=== PATIENT | female | born 1985 | race Caucasian/White ===

== ENCOUNTER 2016-10-04 06:00 | Inpatient (IN) ==
[2016-10-04] MEDS ORDERED: Famotidine 20 MG/2 ML VIAL IVP PRN (06:44)
[2016-10-04] MEDS ORDERED: Naloxone 0.4 MG/ML INJ IVP PRN (06:44)
[2016-10-04] MEDS ORDERED: Metoclopramide 10 MG/2 ML VIAL IVP PRN (06:44)
[2016-10-04] MEDS ORDERED: Ondansetron 4 MG/2 ML VIAL IVP PRN (06:44)
[2016-10-04] MEDS ORDERED: Ringers Solution, Lactated 1,000 ML IVC SCH (06:45)
[2016-10-04] MEDS ORDERED: *HR* Nalbuphine 20 MG/ML AMPUL IVP PRN (06:46)
[2016-10-04 06:54] LABS: Basophils # 0.1 K/mcL (0.0-0.2); Basophils % 0.8 %; Eosinophils # 0.1 K/mcL (0.0-0.6); Eosinophils % 1.4 %; Hematocrit 34.8 % (35.3-44.9); Hemoglobin 11.2 g/dL (11.5-15.4); Immature Granulocytes % 0.8 % (0-4); Lymphocytes # 1.4 K/mcL (0.6-4.6); Lymphocytes % 22.5 %; Mean Corpuscular HGB Conc 32.2 g/dL (31.6-35.5); Mean Corpuscular Hemoglobin 26.9 pg (28.0-33.3); Mean Corpuscular Volume 83.7 fL (83.0-100.0); Mean Platelet Volume 10.8 fL (9.4-12.4); Monocytes # 0.5 K/mcL (0.0-1.3); Neutrophils # 4.2 K/mcL (1.6-8.9); Platelet Count 160 K/mcL (140-400); Red Blood Count 4.16 M/mcL (3.82-4.97); Red Cell Distribution Width 15.3 % (11.5-14.5); Segmented Neutrophils % 66.5 %
[2016-10-04] MEDS ORDERED: miSOPROStol 25 MCG TABLET PO SCH (08:00)
[2016-10-04] MEDS ORDERED: miSOPROStol 100 MCG TABLET PO ONE (08:41)
[2016-10-04] MEDS ORDERED: Methylergonovine 0.2 MG/ML AMPUL IM ONE (08:41)
--- NOTE | 2016-10-04 08:46 | Anesthesia Evaluation PreOp ---
Date of Encounter: 10/04/16 Time of Encounter: 07:56 - Past History Planned Operation: vaginal del, , Induction Cardiac History: Denies any Significant Hx Pulmonary History: Denies Any Significant HX B[place]ER [place] History: Denies Any Significant HX Other Medical History: Denies Any Significant HX, Other (L5-S1 disc issue, no dependent radiculopathy, no radiculopathy for long time >yr, would not last long but pain go down to foot. verbalized concern, pt verbalized understanding. reports get adjusted at chiropractor and feels better.) Anesthesia History: No Prior Anesthetic Complications, Past Anesthesia ( previous epidural, wisdom teeth ext.) : Yes (term) Alcohol Use: none Drug use: none Medications and Allergies [id number]/Iron Fumarate/FA/Dss [ 19 Tablet] 1 tab PO DAILY 10/04/16 [ History] Allergies Cefaclor [From Ceclor] Allergy (Verified 10/04/16 07:08) Rash Anesthesia Results - Labs 10/04/16 06:35 Anesthesia Exam - HEENT Pupil (Motor): Pupils equal Mallampati: II Teeth: Normal Oral Opening: Greater than 3 - BANKER [place]ON LOC: Oriented BANKER [place] Motor: Normal RUE, Normal LUE, Normal RLE, Normal LLE, Normal Face BANKER [place]ON Sensory: Normal: RUE, LUE, RLE, LLE, Face - Cardiac Rhythm: Regular Murmur: None (S2 split) - Pulmonary Breath Sounds: bilateral Clear Respiratory Effort: Symmetrical Anesthesia Assess/Plan ASA Score: 2 Modified Don Scale for Level of Consciousness: Cooperative, oriented, and tranquil Anesthetic Plan: General, Regional (patient going to attempt to not get regional this delivery.)
--- NOTE | 2016-10-04 10:55 | OB/GYN History & Physical ---
Date of Encounter: 10/04/16 Time of Encounter: 10:52 Assessment and Plan (1) 39 weeks gestation of Current visit: Yes Status: Acute Routine labor management Patient may have nubain and/or epidural upon request for pain control Cytotec induction Consider AROM after 4cm dilation and vertex well applied Consider Pitocin as needed for adequate contraction pattern Anticipate vaginal delivery Dr Mora to deliver if available POC per consult with Dr Mora. (2) LGA (large for gestational age) fetus Current visit: Yes Status: Acute IOL for size greater than dates History of Present Illness Chief complaint: IOL HPI: Ms. Paulino is a 31 year old female patient of Dr Saini at 39 weeks that arrives to labor and delivery for scheduled IOL due to EFW greater than the 90th percentile at 36 week growth scan. She is GBS negative. Her blood type is A+. She is Rubella and Varicella immune. Her serology is insignificant. Past Med Surg Social Fam HX - Past Medical History Medical history: no medical history Psychiatric history: no psych history - Social History Smoking Status: Never smoker Smokeless Tobacco Status: No Alcohol use: none Drug use: none - Family History Mother Adopted: No Family Member Ethnicity: Non- Living Status: Still Living Hx Family Cardiac Disorders: Yes Hx Family Respiratory Disorders: Yes Hx Family Cancer: No Hx Family GI Disorders: No Hx Family Genitourinary Disorders: No Hx Family Endocrine Disorder: No Hx Family Musculoskeletal Disorders: No Hx Family Neuromuscular Disorders: No Hx Family Neurologic Disorders: No Hx Family HEENT Disorders: No Hx Family Autoimmune Disorders: No Hx Family Reproductive Disorders: No Hx Family Psychosocial Disorders: Yes Hx Family Medical Disorders: No Obstetrical History - Pregnancies : 2 Para: 1 Term: 1 : 0 Ab's: 0 Livin Medications and Allergies Hsn384/Iron Fumarate/FA/Dss [ 19 Tablet] 1 tab PO DAILY 10/04/16 [ History] Allergies [facility] [[facility]] Allergy (Verified 10/04/16 07:08) Rash Review of System OB All systems PM: reviewed and no additional remarkable complaints except as stated Exam - Constitutional Constitutional: well developed, well nourished, no acute distress, average body habitus - HEENT HEENT: Normocephaly, Mucus Membranes Moist - Neck Neck exam: full ROM - Lungs Respiratory exam: CTAB - Cardiovascular Cardiovascular exam: RRR, +S1, +S2 - Abdomen Abdomen: Present: bowel sounds normal, gravid. Absent: non tender - Extremities Extremities exam: normal capillary refill, normal inspection - Cervix Dilation: 2 (Per Office Exam) Effacement: 80 (Per Office Exam) Station: -2 - Uterus Uterus exam: Present: normal size, normal contour (FHTs 140's with moderate variability and no decels. Contractions palpate mild every 1.5 - 3 minutes. ) Results Result Diagrams: 10/04/16 06:35 Abnormal lab results Hgb 11.2 g/dL (11.5-15.4) L 10/04/16 06:35 Hct 34.8 % (35.3-44.9) L 10/04/16 06:35 MCH 26.9 pg (28.0-33.3) L 10/04/16 06:35 RDW 15.3 % (11.5-14.5) H 10/04/16 06:35 All other labs normal.
[2016-10-04] MEDS ORDERED: Ringers Solution, Lactated 1,000 ML ONE (12:00)
--- NOTE | 2016-10-04 12:00 | OB Labor Progress Note ---
Date of Encounter: 10/04/16 Time of Encounter: 11:57 Labor Progress Note - Subjective Subjective: Patient resting comfortably in bed. States contractions are tolerable. - Vital Signs Vital Signs: VSS - Cervix Cervix: 4/70/-2 - Heart Tones Heart Tones: 140's with moderate variability and 15 x 15 accels and no decels. - [place] [facility] [place] [facility]: Contractions every 1-4 minutes - Interventions Interventions: AROM for large amount of clear fluid. Fetus and patient tolerated well. - Plan Plan: Continue routine labor management Patient may have nubain and or epidural upon request; patient states she would like to attempt labor without epidural GBS negative Anticipate vaginal delivery POC per consult with Dr Mora
[2016-10-04] MEDS ORDERED: Oxytocin 20 units/ LR 1000 mL 20 UNIT/1,000 ML BAG IVC ONE ×2 (15:00→17:18)
[2016-10-04] MEDS ORDERED: Lidocaine 1% 20 ML MDV ONE (15:01)
[2016-10-04] MEDS ORDERED: Ibuprofen 600 MG TABLET PO PRN ×2 (16:16→18:11)
[2016-10-04] MEDS ORDERED: miSOPROStol 100 MCG TABLET RC STA (16:22)
--- NOTE | 2016-10-04 16:25 | OB Labor Progress Note ---
Date of Encounter: 10/04/16 Time of Encounter: 14:55 Labor Progress Note - Subjective Subjective: Patient breathing through contractions and quiet between. States "I can't do this any longer". - Vital Signs Vital Signs: VSS - Cervix Cervix: Complete/-2 - Heart Tones Heart Tones: 110-120's moderate variability with 15x15 accels occasional variables. - [place] Crawford: Contractions every 1-3 minutes - Interventions Interventions: Sit up to push - Plan Plan: Anticipate vaginal delivery. Sit up to push. Dr Curiel process control specialist for potential shoulder dystocia due to LGA per ultrasound
--- NOTE | 2016-10-04 16:28 | OB/GYN Procedure Note ---
Delivery - Delivery Date: 10/04/16 Provider: Devante Curiel (Vilma Harris to deliver placenta and repair) Delivery induction: misoprostol Delivery augmentation: rupture of membranes Delivery monitor: external FHT, external uterine Anesthesia: none Estimated Blood Loss: 250 - (s) A Infant Delivery Date: 10/04/16 Infant Delivery Time: 15:34 Presentation: vertex Position: AIDA Route of delivery: Gender: Female Viability: Viable Pounds: 9 Ounces: 2 Weight Gram: 4145 kg at 1 minute: 8 at 5 mins: 9 Shoulder Dystocia: encountered Shoulder Dystocia Maneuvers: Faustina maneuver, suprapubic pressure Shoulder dystocia time elapsed: 30 seconds Specimens collected: venous cord gases, arterial cord gases Placenta: spontaneous - Repair Episiotomy: none Laceration Description: Perineal - 1st Degree - Complications Delivery comments: Patient progressed to complete and began pushing spontaneously. Turtle sign noted when pushing, Dr Curiel notified to come into room for possible shoulder dystocia. of viable female ; no nuchal cord, no meconium stained fluid. 30 second shoulder dystocia of the left shoulder. Shoulder reduced with suprapubic pressure and McRobert's by Dr Curiel. Body followed easily afterward. vigorous. Cord clamped and cut immediately. taken to prewarmed radiant warmer and assessed by nursery staff. Apgars 8 and 9 at 1 and 5 minutes of age respectively. Cord gasses collected and sent. Spontaneous delivery of placenta with trailing membranes. Membranes sheared from disk during delivery, all pieces appear present upon inspection and placental disk appears grossly intact. Dr Curiel verified placenta inspection. Upon visual inspection, hemostatic periurethral abrasion present - will leave to heal by second intention - and a first degree that was repaired with 3-0 vicryl in the usual fashion. After completion of repair, patient's uterus is firm and at U. Steady trickle of blood noted from the vagina. 800mg of cytotec given rectally due patient's history of PPH with previous delivery. EBL 250. Upon leaving the room, patient's uterus remains firm and at U with small amount of vaginal bleeding. and mother stable and recovering in room. - Disposition Mom disposition: stable in LDR [place] disposition: stable in LDR
--- NOTE | 2016-10-04 17:07 | Event Note ---
Date of Encounter: 10/04/16 Time of Encounter: 16:45 Called into room by RN. Upon fundal checks, patient is having "large gushes" of blood noted. With fundal massage about 10cc of watery blood gushed from vagina. Straight cathed patient for 250 cc of dark yellow urine. Methergine given IM per RN with this CNM in room. Bimaunal exam reveals a firm uterus with a cervix open to 4 cm and a large palpable clot in the posterior fornix. I removed part of the clot manually. Patient states she feels fine and was willing to go to the restroom to change her body's position to see if gravity would aid the remaining portion of the clot to dislodge. Patient sits on the toilet and bears down for a few minutes without success of dislodging clot. Patient returns to bed. Fundus firm at U without large gush.
[2016-10-04] MEDS ORDERED: Measles/Mumps/Rubella Vacc 0.5 ML VIAL SQ PRN (18:11)
[2016-10-04] MEDS ORDERED: Acetaminophen 325 MG TABLET PO PRN (18:11)
[2016-10-04] MEDS ORDERED: Oxytocin 20 units/ LR 1000 mL 20 UNIT/1,000 ML BAG IVC SCH (18:11)
[2016-10-05 08:23] VITALS: BP 105/68
[2016-10-05] MEDS ORDERED: Prenatal Vit/FA 1 EACH TABLET PO SCH ×2 (09:00)
--- NOTE | 2016-10-05 10:29 | Discharge Summary ---
Date of Encounter: 10/05/16 Time of Encounter: 10:26 - Discharge Diagnosis (1) Vaginal delivery Priority: Primary Status: Acute - Discharge Medications Prescriptions: Ibuprofen [Motrin] 600 mg PO Q6HR PRN #60 tablet PRN Reason: Mild To Moderate Pain Docusate [Colace] 100 mg PO BID #60 capsule Home Medications: [id number]/Iron Fumarate/FA/Dss [ 19 Tablet] 1 tab PO DAILY 10/04/16 [ History] Acetaminophen [Tylenol] 650 mg PO Q6HR PRN #0 tablet 10/05/16 [Rx] Breast Pump [BREAST PUMP] 1 each .ROUTE AD #1 each 10/05/16 [Rx] Docusate [Colace] 100 mg PO BID #60 capsule 10/05/16 [Rx] Ibuprofen [Motrin] 600 mg PO Q6HR PRN #60 tablet 10/05/16 [Rx] Allergies/Adverse Reactions: Allergies Cefaclor [From Ceclor] Allergy (Verified 10/04/16 07:08) Rash Data Procedures and tests throughout hospitalization: Laboratory Tests 10/04/16 06:35 WBC 6.3 RBC 4.16 Hgb 11.2 L Hct 34.8 L MCV 83.7 MCH 26.9 L MCHC 32.2 RDW 15.3 H Plt Count 160 MPV 10.8 Immature Gran % 0.8 Seg Neutrophils % 66.5 Lymphocytes % 22.5 Monocytes % 8.0 Eosinophils % 1.4 Basophils % 0.8 Neutrophils # 4.2 Lymphocytes # 1.4 Monocytes # 0.5 Eosinophils # 0.1 Basophils # 0.1 Date of admission: 10/04/16 06:15 Primary care physician: Alina Green, Consults: 10/04/16 18:11 Consult to [employer] [CONS] Routine Comment: Vaginal delivery, consult needed Discharging clinician: Ilana Gibbs Anticipated date of discharge: 10/05/16 - Patient Status Disposition: Home, Self-Care Condition: Good Functional capacity at discharge: independent ambulation Overall status at discharge: patient is back to baseline - Discharge Instructions Instructions: Vaginal Delivery (DC) Follow Up With: Alina Green MD [Primary Care Provider] - Additional Instructions: Perineal Care: Always wipe front to back Change your pad frequently Use your james bottle with warm water and spray front to back Do not douche, use tampons, have sexual intercourse or put anything in your vagina for 4-6 weeks after delivery Bleeding: Vaginal bleeding can last up to 6 weeks Your menstrual period may return as early as 6 weeks after you are discharged from the hospital Parnell/Stitches Care: Vaginal Delivery Vaginal stitches will dissolve within 4-6 weeks Follow perineal care instructions Care Stitches will dissolve on their own If you have tracie, they will need to be removed in the doctors office within 5-7 days. You may shower with stitches or tracie Drip plan or soapy water over the incision to clean. Pat dry gently with a clean towel. Make sure you completely dry under the skin folds DO NOT USE powders, lotions, rubbing alcohol or hydrogen peroxide on or around your incision. This will slow your wound healing It is normal to have soreness, burning, tingling, itchiness and/or numbness as your incision heals Activity: Rest frequently Do not lift anything heavier than a gallon of milk, up to 10-15 pounds No driving for 1-2 weeks for Vaginal delivery No driving for 2-4 weeks for delivery Take stairs slowly, one at a time Gradually increase your daily activity until you are back to your normal routine Do not exercise until you have had your follow-up appointment Bathing: Take a shower daily Do not take a tub bath for the first 4 weeks Diet: Drink plenty of water and fruit juices Eat a well-balanced diet with foods high in fiber such as fruits and vegetables Depression: Your hormones have a major impact on your feelings and emotions. Hormone imbalance may cause changes in your mood, creating unfamiliar thoughts and actions. Support is available to help you understand and cope with these feelings and mood changes. If you answer yes to any of the following questions, please call your health care provider: Are you having trouble sleeping? Are you feeling isolated? Have you lost your appetite? Are you having thoughts of hurting yourself or others? WARNING SIGNS: Heavy bleeding from the vagina (blood is bright red and soaks a sanitary pad in an hour or less.) Passing a blood clot larger than your fist Discharge from the vagina that has a bad odor Temperature over 100.4 F, or if you feel cold and have chills An episiotomy site that is warm, swollen or oozing. Use a mirror if needed Urination (pee) that is painful, very red and swollen or leaking fluid An incision that is painful, very red and swollen and leaking fluid An incision that has come open Breasts that are painful or full with flu like symptoms Redness, warmth or swelling in the calf of your leg Trouble breathing, dizziness, visual disturbance or faintness *Notify your health care provider immediately or go to the nearest Emergency Room if you experience any of the above signs.* To contact the nurses station 24 hours a day, For non-urgent, routine questions, please call the office at - Diet and Activity Activity: resume usual activities as tolerated Diet: regular diet Hospital Course Reason for admission: IUP at term Delivery: Episiotomy: none Laceration: 1st degree Other procedures: none complications: none Discharge diagnosis: IUP at term delivered baby: female Hospital course: - Delivery Date: 10/04/16 Provider: Devante Curiel to deliver placenta and repair) Delivery induction: misoprostol Delivery augmentation: rupture of membranes Delivery monitor: external FHT, external uterine Anesthesia: none Estimated Blood Loss: 250 - Infant (s) A Infant Delivery Date: 10/04/16 Infant Delivery Time: 15:34 Presentation: vertex Position: AIDA Route of delivery: Gender: Female Viability: Viable Pounds: 9 Ounces: 2 Weight Gram: 4145 kg at 1 minute: 8 at 5 mins: 9 Shoulder Dystocia: encountered Shoulder Dystocia Maneuvers: Faustina maneuver, suprapubic pressure Shoulder dystocia time elapsed: 30 seconds Specimens collected: venous cord gases, arterial cord gases Placenta: spontaneous - Repair Episiotomy: none Laceration Description: Perineal - 1st Degree - Complications Delivery comments: Patient progressed to complete and began pushing spontaneously. Turtle sign noted when pushing, Dr Curiel notified to come into room for possible shoulder dystocia. of viable female infant; no nuchal cord, no meconium stained fluid. 30 second shoulder dystocia of the left shoulder. Shoulder reduced with suprapubic pressure and McRobert's by Dr Curiel. Body followed easily afterward. Infant vigorous. Cord clamped and cut immediately. Infant taken to prewarmed radiant warmer and assessed by nursery staff. Apgars 8 and 9 at 1 and 5 minutes of age respectively. Cord gasses collected and sent. Spontaneous delivery of placenta with trailing membranes. Membranes sheared from disk during delivery, all pieces appear present upon inspection and placental disk appears grossly intact. Dr Curiel verified placenta inspection. Upon visual inspection, hemostatic periurethral abrasion present - will leave to heal by second intention - and a first degree that was repaired with 3-0 vicryl in the usual fashion. After completion of repair, patient's uterus is firm and at U. Steady trickle of blood noted from the vagina. 800mg of cytotec given rectally due patient's history of PPH with previous delivery. EBL 250. Upon leaving the room, patient's uterus remains firm and at U with small amount of vaginal bleeding. and mother stable and recovering in room. - Disposition Mom disposition: stable in PP and appropriate for discharge Time Attestation: Total time spent providing and/or coordinating discharge services: Time Spent: Less than 30 minutes Exam - Constitutional Vitals: Temp Pulse Resp BP Pulse Ox 97.9 F 87 16 105/68 99 10/05/16 07:30 10/05/16 07:30 10/05/16 07:30 10/05/16 07:30 10/05/16 03:09 General appearance IM: A&O X 3 - Respiratory Respiratory exam: Present: CTAB - Cardiovascular Cardiovascular exam IM: Present: RRR - GI/Abdominal GI/Abdominal exam IM: normal bowel sounds, soft - Uterine Tone: Firm Uterus Position: At Umbilicus, Midline - Extremities Exam Extremities exam IM: Present: normal capillary refill, normal inspection - Neurological Exam Neurological exam: normal gait, oriented X3 - Psychiatric Additional comments: Reports good mood
== END 2016-10-05 14:03 | disposition home or self-care (01) | DRG 560 ==
LOC: 1NENULAB 06:15 → 1NENUOBS 18:14
PROVIDERS: ADMIT Obstetrics & Gynecology; ATTEND Obstetrics & Gynecology

== ENCOUNTER 2018-11-21 08:00 | Inpatient (IN) ==
[2018-11-21] MEDS ORDERED: Metoclopramide 10 MG/2 ML VIAL IVP PRN (08:41)
[2018-11-21] MEDS ORDERED: Famotidine 20 MG/2 ML VIAL IVP PRN (08:41)
[2018-11-21] MEDS ORDERED: Ondansetron 4 MG/2 ML VIAL IVP PRN (08:41)
[2018-11-21] MEDS ORDERED: *HR* Nalbuphine 10 MG/ML AMPUL IVP PRN (08:41)
[2018-11-21] MEDS ORDERED: Naloxone 0.4 MG/ML INJ IVP PRN (08:41)
[2018-11-21] MEDS ORDERED: Ringers Solution, Lactated 1,000 ML IVC SCH (08:45)
[2018-11-21] MEDS ORDERED: miSOPROStol 25 MCG TABLET PO SCH (09:15)
[2018-11-21 09:19] LABS: Basophils # 0.1 K/mcL (0.0-0.2); Basophils % 0.6 %; Eosinophils % 0.4 %; Hematocrit 36.3 % (35.3-44.9); Hemoglobin 11.7 g/dL (11.5-15.4); Immature Granulocytes % 0.9 % (0-4); Lymphocytes # 1.5 K/mcL (0.6-4.6); Lymphocytes % 19.5 %; Mean Corpuscular HGB Conc 32.2 g/dL (31.6-35.5); Mean Corpuscular Volume 90.1 fL (83.0-100.0); Mean Platelet Volume 11.5 fL (9.4-12.4); Monocytes # 0.5 K/mcL (0.0-1.3); Monocytes % 6.6 %; Neutrophils # 5.6 K/mcL (1.6-8.9); Platelet Count 187 K/mcL (140-400); Red Blood Count 4.03 M/mcL (3.82-4.97); White Blood Count 7.8 K/mcL (4.3-11.1)
[2018-11-21] MEDS ORDERED: Oxytocin 20 units/ LR 1000 mL 20 UNIT/1,000 ML BAG IVC ONE (13:21)
[2018-11-21 13:23] LABS: Amphetamine Screen,Urine Negative ng/mL (Cutoff=1000); Barbiturate Screen,Urine Negative ng/mL (Cutoff=200); Benzodiazepines Screen,Urine Negative ng/mL (Cutoff=200); Cannabinoid Screen,Urine Negative ng/mL (Cutoff = 50); Cocaine Screen,Urine Negative ng/mL (Cutoff= 300); Opiate Screen,Urine Negative ng/mL (Cutoff=300); Phencyclidine Screen,Urine Negative ng/mL (Cutoff=25)
[2018-11-21] MEDS: Oxytocin 20 units/ LR 1000 mL 20 UNIT/1,000 ML BAG IVC SCH ×2 (13:30→16:14)
--- NOTE | 2018-11-21 13:42 | OB/GYN Procedure Note ---
Delivery - Delivery Date: 11/21/18 Provider: Sarath Mora Delivery induction: AROM, misoprostol Delivery monitor: external FHT, external uterine Anesthesia: none Quantitated Blood Loss: 100 - Infant (s) Infant A Delivery Date: 11/21/18 Infant Delivery Time: :19 Presentation: vertex Position: AIDA Route of delivery: Gender: Male Viability: Viable Pounds: 8 Ounces: 5 Shoulder Dystocia: not encountered Placenta: spontaneous Cord: true knot - Repair Episiotomy: none Laceration Description: None - Complications Delivery complications: none - Disposition Mom disposition: stable in LDR disposition: stable in LDR - Comments Comments: Since status post normal spontaneous vaginal delivery of liveborn male from left occiput anterior presentation. Delivery was over an intact perineum and there was no shoulder dystocia. With spontaneous delivery of a normal placenta with three-vessel cord. There was a true knot in the cord. No complications estimated blood loss (cc mother and infant recovered in labor and delivery room
[2018-11-21] MEDS ORDERED: Measles/Mumps/Rubella Vacc 0.5 ML VIAL SQ PRN (13:45)
[2018-11-21] MEDS ORDERED: Rho Immune Globulin 1,500 UNIT SYRINGE IM PRN (13:45)
[2018-11-21] MEDS ORDERED: Acetaminophen 325 MG TABLET PO PRN (13:45)
--- NOTE | 2018-11-21 13:46 | OB/GYN History & Physical ---
Date of Encounter: 11/21/18 Time of Encounter: 13:43 Assessment and Plan (1) 39 weeks gestation of Current visit: No Status: Acute Pt at 39 weeks gestation presents for induction of labor. (2) LGA (large for gestational age) fetus Current visit: No Status: Acute History of Present Illness Chief complaint: Here for induction HPI: Ms. Paulino is a 33 year old female female at 39 weeks EGA presents for induction. On arrival she reports +GFM, no vb or lof. Past Med Surg Social Fam HX - Past Medical History Source: patient, old records reviewed Medical history: no medical history Psychiatric history: no psych history - Past Surgical History Additional surgical history: wisdom teeth - Social History Smoking Status: Never smoker Smokeless Tobacco Status: No Alcohol use: none Drug use: none - Family History Mother Adopted: No Family Member Ethnicity: Non- Living Status: Still Living Hx Family Cardiac Disorders: Yes Hx Family Respiratory Disorders: Yes Hx Family Cancer: No Hx Family GI Disorders: No Hx Family Endocrine Disorder: No Hx Family Neuromuscular Disorders: No Hx Family Neurologic Disorders: No Hx Family HEENT Disorders: No Hx Family Autoimmune Disorders: No Obstetrical History - Pregnancies : 3 Para: 2 Medications and Allergies Pyd460/Iron Fumarate/FA/Dss [ 19 Tablet] 1 tab PO DAILY 10/04/16 [History] Allergy/AdvReac Type Severity Reaction Status Date / Time Cefaclor [From [facility]] Allergy Rash Verified 10/04/16 07:08 Exam - Constitutional Constitutional: well developed - HEENT HEENT: EOMI, PERRL - Neck Neck exam: full ROM - Lungs Respiratory exam: CTAB - Cardiovascular Cardiovascular exam: RRR - Extremities Extremities exam: full ROM Deep Tendon Reflex Grade: 2+ Normal - Cervix Dilation: 3 Effacement: 80 Station: -2 - Uterus Uterus exam: Present: normal size Results Result Diagrams: 11/21/18 08:35 All other labs normal. - VTE Reasons for not Prescribing Prophylaxis: Treatment not Indicated - Low risk for VTE
[2018-11-22 07:55] VITALS: BP 114/74
[2018-11-22] MEDS ORDERED: Prenatal Vit/FA 1 EACH TABLET PO SCH (09:00)
--- NOTE | 2018-11-22 09:39 | Discharge Summary ---
Date of Encounter: 11/22/18 Time of Encounter: 10:05 - Discharge Diagnosis (1) Mother currently breast-feeding Priority: Secondary Status: Acute Comments: Breastfeed baby on demand, at least every 3 hours. Breast pump at home as needed. (2) Vaginal delivery Priority: Primary Status: Acute Comments: Pt meeting milestones. Pain well controlled. Tolerating regular diet. No other complaints. Reports good mood. She desires discharge home today. - Discharge Medications Prescriptions: New Docusate [Colace] 100 mg PO BID #60 capsule Ibuprofen [Motrin] 600 mg PO Q6HR PRN #30 tab PRN Reason: Pain Continued Vip375/Iron Fumarate/FA/Dss [ 19 Tablet] 1 tab PO DAILY Home Medications: Acd113/Iron Fumarate/FA/Dss [ 19 Tablet] 1 tab PO DAILY 10/04/16 [History] Docusate [Colace] 100 mg PO BID #60 capsule 11/22/18 [Rx] Ibuprofen [Motrin] 600 mg PO Q6HR PRN #30 tab 11/22/18 [Rx] Allergies/Adverse Reactions: Allergy/AdvReac Type Severity Reaction Status Date / Time Cefaclor [From [facility]] Allergy Rash Verified 10/04/16 07:08 Data Procedures and tests throughout hospitalization: Laboratory Tests 11/21/18 11/21/18 08:35 12:50 WBC 7.8 RBC 4.03 Hgb 11.7 Hct 36.3 MCV 90.1 MCH 29.0 MCHC 32.2 RDW 14.0 Plt Count 187 MPV 11.5 Immature Gran % 0.9 Seg Neutrophils % 72.0 Lymphocytes % 19.5 Monocytes % 6.6 Eosinophils % 0.4 Basophils % 0.6 Neutrophils # 5.6 Lymphocytes # 1.5 Monocytes # 0.5 Eosinophils # 0.0 Basophils # 0.1 Urine Opiates Screen Negative Ur Buprenorphine Scrn Negative Ur Barbiturates Screen Negative Ur Phencyclidine Scrn Negative Ur Amphetamines Screen Negative U Benzodiazepines Scrn Negative Urine Cocaine Screen Negative U Marijuana (THC) Screen Negative Ur Drug Screen Interp See Below Labs on day of discharge: Labs from last 24 hours 11/21/18 12:50 Urine Opiates Screen Negative Ur Buprenorphine Scrn Negative Ur Barbiturates Screen Negative Ur Phencyclidine Scrn Negative Ur Amphetamines Screen Negative U Benzodiazepines Scrn Negative Urine Cocaine Screen Negative U Marijuana (THC) Screen Negative Ur Drug Screen Interp See Below Date of admission: 11/21/18 08:09 Primary care physician: Alina Green MD Consults: 11/21/18 13:45 Consult to Director Of Learning [CONS] Routine Comment: Vaginal delivery, consult needed Discharging clinician: Bhavani Tay Anticipated date of discharge: 11/22/18 - Patient Status Disposition: Home, Self-Care Condition: Good Functional capacity at discharge: independent ambulation Overall status at discharge: patient is progressing back to baseline - Discharge Instructions Follow Up With: Alina Green MD [Primary Care Provider] - Sarath Mora MD [Partnered Physician] - - Diet and Activity Activity: increase activity as tolerated Diet: regular diet Hospital Course Procedures: Delivery Date: 11/21/18 Provider: Sarath Mora Delivery induction: AROM, misoprostol Delivery monitor: external FHT, external uterine Anesthesia: none Quantitated Blood Loss: 100 - (s) Infant A Delivery Date: 11/21/18 Infant Delivery Time: Presentation: vertex Position: AIDA Route of delivery: Gender: Male Viability: Viable Pounds: 8 Ounces: 5 Shoulder Dystocia: not encountered Placenta: spontaneous Cord: true knot - Repair Episiotomy: none Laceration Description: None - Complications Delivery complications: none - Disposition Mom disposition: Discharge to home disposition: Discharge to home with mother Reason for admission: induction of labor Delivery: Episiotomy: none Laceration: none complications: none Discharge diagnosis: IUP at term delivered baby: male Hospital course: - Delivery Date: 11/21/18 Provider: Sarath Mora Delivery induction: AROM, misoprostol Delivery monitor: external FHT, external uterine Anesthesia: none Quantitated Blood Loss: 100 - (s) A Infant Delivery Date: 11/21/18 Infant Delivery Time: : Presentation: vertex Position: AIDA Route of delivery: Gender: Male Viability: Viable Pounds: 8 Ounces: 5 Shoulder Dystocia: not encountered Placenta: spontaneous Cord: true knot - Repair Episiotomy: none Laceration Description: None - Complications Delivery complications: none - Disposition Mom disposition: home PPD1 disposition: home with mother, Time Attestation: Total time spent providing and/or coordinating discharge services: Time Spent: Less than 30 minutes Exam - Constitutional Vitals: Temp Pulse Resp BP Pulse Ox 97.8 F 85 20 114/74 98 11/22/18 07:54 11/22/18 07:54 11/22/18 07:54 11/22/18 07:54 11/22/18 07:54 General appearance IM: A&O X 3, no acute distress, answers questions appropriately Exam: 33 y/o female PP day#1. Reports decreasing amount of lochia rubra without clots. Tolerating regular diet but has some nausea this morning. Ambulating without difficulty. Reports nipples tender but not sore & pain managed with meds. Reports good mood. Anticipate discharge to home today. - Respiratory Respiratory exam: Present: CTAB - Cardiovascular Cardiovascular exam IM: Present: RRR - GI/Abdominal GI/Abdominal exam IM: soft - Uterine Tone: Firm Uterus Position: 1 Finger Below Umbilicus, Midline - Extremities Exam Extremities exam IM: Present: normal inspection
[2018-11-22 09:50] LABS: Basophils # 0.1 K/mcL (0.0-0.2); Basophils % 0.5 %; Eosinophils % 0.4 %; Hematocrit 38.9 % (35.3-44.9); Hemoglobin 12.6 g/dL (11.5-15.4); Immature Granulocytes % 0.7 % (0-4); Lymphocytes # 1.5 K/mcL (0.6-4.6); Mean Corpuscular HGB Conc 32.4 g/dL (31.6-35.5); Mean Corpuscular Hemoglobin 28.6 pg (28.0-33.3); Mean Corpuscular Volume 88.4 fL (83.0-100.0); Mean Platelet Volume 11.6 fL (9.4-12.4); Monocytes # 0.6 K/mcL (0.0-1.3); Monocytes % 5.7 %; Neutrophils # 8.2 K/mcL (1.6-8.9); Platelet Count 177 K/mcL (140-400); Segmented Neutrophils % 78.7 %; White Blood Count 10.4 K/mcL (4.3-11.1)
[2018-11-22] MEDS ORDERED: Ibuprofen 600 MG TABLET PO PRN (12:48)
== END 2018-11-22 17:00 | disposition home or self-care (01) | DRG 560 ==
LOC: 1NENULAB 08:09 → 1NENUOBS 17:12
PROVIDERS: ADMIT Obstetrics & Gynecology; ATTEND Obstetrics & Gynecology